=== PATIENT | female | born 1960 | race Caucasian/White ===

== ENCOUNTER 2019-01-26 19:07 | Emergency (ER) | payer OTHER ==
--- NOTE | 2019-01-26 19:51 | ER Document Report ---
ED Medical Screen (RME) - General Chief Complaint: Laceration Stated Complaint: CUT FINGER Time Seen by Provider: 01/26/19 19:46 Mode of Arrival: Ambulatory Information source: Patient Notes: Patient presents emergency department with left index finger laceration. Reports she cut it with a knife when she was cleaning the knife. Reports her tetanus is up-to-date. Patient is able to flex and extend the index finger, good cap refill. No active bleeding. Flap noted I have greeted and performed a rapid initial assessment of this patient. A comprehensive ED assessment and evaluation of the patient, analysis of test results and completion of the medical decision making process will be conducted by additional ED providers. Dictation of this chart was performed using voice recognition software; therefore, there may be some unintended grammatical errors. TRAVEL OUTSIDE OF THE [place] IN LAST 30 DAYS: No - Related Data Allergies/Adverse Reactions: No Known Allergies Allergy (Verified 01/26/19 19:09) Physical Exam - Vital signs Vitals: Temp Pulse Resp BP Pulse Ox 98.2 F 63 16 148/86 H 98 01/26/19 19:23 01/26/19 19:23 01/26/19 19:23 01/26/19 19:23 01/26/19 19:23 Course - Vital Signs Vital signs: Temp Pulse Resp BP Pulse Ox 98.2 F 63 16 148/86 H 98 01/26/19 19:23 01/26/19 19:23 01/26/19 19:23 01/26/19 19:23 01/26/19 19:23
--- NOTE | 2019-01-26 20:40 | RADIOLOGY REPORT (SQ) ---
EXAM DESCRIPTION: XR LEFT INDEX FINGER, 3 views COMPLETED DATE/TME: 01/26/2019 19:49 CLINICAL HISTORY: 58 years, Female, laceration COMPARISON: None. NUMBER OF VIEWS: TECHNIQUE: LIMITATIONS: None. FINDINGS: No evidence of radiopaque foreign body within the soft tissues. No fracture or dislocation. Mineralization of bone appears normal. IMPRESSION: No fracture or radiopaque foreign body. copyright 2010 [employer]- All Rights Reserved
[2019-01-26] MEDS ORDERED: LIDOCAINE 1% INJ-PF (10 MG/ML) 30 ML SDV INJ ONE (20:50)
[2019-01-26] MEDS ORDERED: LIDOCAINE 4% TRANSPARENT DRESSING 5 GM KIT TP ONE (20:50)
--- NOTE | 2019-01-26 20:52 | ER Document Report ---
ED Wound - General Chief Complaint: Laceration Stated Complaint: CUT FINGER Time Seen by Provider: 01/26/19 19:46 Mode of Arrival: Ambulatory Notes: Patient is a 58-year-old female that comes to the emergency department for chief complaint of laceration to the left index finger. She was cutting onions, and was cleaning a knife afterwards, excellently cut herself when cleaning a knife off. She is up-to-date on her vaccinations, she is not on a blood thinner. No other injuries or complaints reported. TRAVEL OUTSIDE OF THE [place] IN LAST 30 DAYS: No - Related Data Allergies/Adverse Reactions: No Known Allergies Allergy (Verified 01/26/19 19:09) Past Medical History - General Information source: Patient - Social History Smoking Status: Never Smoker Frequency of alcohol use: Occasional Drug Abuse: None Lives with: Family Family History: Reviewed & Not Pertinent Patient has suicidal ideation: No Patient has homicidal ideation: No Renal/ Medical History: Denies: Hx Peritoneal Dialysis - Immunizations Immunizations up to date: Yes Hx Diphtheria, Pertussis, Tetanus Vaccination: Yes Review of Systems - Review of Systems Constitutional: No symptoms reported EENT: No symptoms reported Cardiovascular: No symptoms reported Respiratory: No symptoms reported Gastrointestinal: No symptoms reported Genitourinary: No symptoms reported Female Genitourinary: No symptoms reported Musculoskeletal: See HPI Skin: See HPI Hematologic/Lymphatic: No symptoms reported Neurological/Psychological: No symptoms reported Physical Exam - Vital signs Vitals: Temp Pulse Resp BP Pulse Ox 98.2 F 63 16 148/86 H 98 01/26/19 19:23 01/26/19 19:23 01/26/19 19:23 01/26/19 19:23 01/26/19 19:23 - Notes Notes: GENERAL: Alert, interacts well. No acute distress. HEAD: Normocephalic, atraumatic. EYES: Pupils equal, round, and reactive to light. Extraocular movements intact. ENT: Oral mucosa moist, tongue midline. Oropharynx unremarkable. Airway patent. LUNGS: Clear to auscultation bilaterally, no wheezes, rales, or rhonchi. No respiratory distress. HEART: Regular rate and rhythm. No murmur ABDOMEN: Soft, non-tender. Non-distended. EXTREMITIES: Left index finger with a flap laceration over the distal aspect of the dorsal hand, this is between the PIP and the DIP, approximately 1.5 cm in length, jagged. Explored easily, no signs of tendon, large vessel, or nerve injury. Normal strength against flexion and extension. Normal capillary refill and sensation. Normal upper extremities otherwise. BACK: no cervical, thoracic, lumbar midline tenderness. Moves all extremities in full range of motion. NEUROLOGICAL: Alert and oriented x3. Normal speech. Cranial nerves II through XII grossly intact. PSYCH: Normal affect, normal mood. SKIN: Warm, dry, normal turgor. No rashes or lesions noted. Course - Re-evaluation Re-evalutation: X-ray unremarkable. Laceration with no noted concerning underlying injuries. Area was cleaned thoroughly, repaired. Discussed different options, decision was made for prophylaxis because the wound is of the finger and the instrument was not clean. Discussed follow-up and return precautions. Patient states understanding and agreement. - Vital Signs Vital signs: Temp Pulse Resp BP Pulse Ox 97.7 F 63 15 156/103 H 98 01/26/19 22:34 01/26/19 22:34 01/26/19 22:34 01/26/19 22:34 01/26/19 22:34 Procedures - Laceration/Wound Repair Left index finger Wound length (cm): 1.5 Wound's Depth, Shape: Irregular, Flap Laceration pre-procedure: Sterile PPE donned, Sterile drapes applied, Shur-Clens applied Anesthetic type: 1% Lidocaine Volume Anesthetic (mLs): 4 Wound explored: Clean, No foreign body removed Wound Repaired With: Sutures Suture Size/Type: 5:0, Nylon Number of Sutures: 5 Layer Closure?: No Post-procedure wound care: Sterile dressing applied Post-procedure NV exam normal: Yes Complications: No Discharge - Discharge Clinical Impression: Finger laceration Qualifiers: Encounter type: initial encounter Finger: index finger Damage to nail status: without damage Foreign body presence: without foreign body Laterality: left Qualified Code(s): S61.211A - Laceration without foreign body of left index finger without damage to nail, initial encounter Condition: Stable Disposition: HOME, SELF-CARE Additional Instructions: The x-ray is normal. The sutures need to be removed in about 7 days at a medical facility. Keep clean, clean with soap and water, dab dry, avoid scrubbing or soaking. I recommend a topical antibiotic such as bacitracin at least for the first 2 days. Take anabolic as prescribed as well to avoid infection. Return immediately for any signs of infection including developing pain, redness, swelling, discolored drainage, fever/chills. Prescriptions: Cephalexin Monohydrate [Keflex 500 mg Capsule] 500 mg PO TID 5 Days #15 capsule
[2019-01-26 23:43] VITALS: BP 156/103
== END 2019-01-26 22:40 | disposition home or self-care (01) ==
LOC: ER 19:07
DX: S61.211A Laceration without foreign body of left index finger without damage to nail, initial encounter (principal); W26.0XXA Contact with knife, initial encounter; Y93.G9 Activity, other involving cooking and grilling
CPT/HCPCS: 99283; 73140; 12001; J3490 ×2